=== PATIENT | male | born 1945 | race Caucasian/White ===

== ENCOUNTER 2021-05-08 11:08 | Outpatient (CLI) | payer OTHER ==
[~2021-05-08 11:08] MED LIST: CARTIA XT120 MG PO; DILTIAZEM ER90 MG PO; GLUMETZA1000 MG PO; LOVASTATIN10 MG PO; SYNTHROID75 MCG PO
== END 2021-05-08 11:10 | disposition home or self-care (01) ==
LOC: LAB 11:08
PROVIDERS: ATTEND Urology
DX: C61 Malignant neoplasm of prostate (principal)